=== PATIENT | female | born 1990 | race Caucasian/White ===

== ENCOUNTER 2018-11-13 17:08 | Emergency (ER) | payer OTHER ==
[~2018-11-13] VITALS: Ht 170.2 cm; Wt 79.5 kg
[2018-11-13 19:19] LABS: AMPHET/METH SCREEN,URINE POSITIVE (NEGATIVE); BARBITURATE SCREEN, URINE NEGATIVE (NEGATIVE); BENZODIAZEPINES SCREEN,URINE NEGATIVE (NEGATIVE); CANNABINOID SCREEN,URINE NEGATIVE (NEGATIVE); COCAINE SCREEN,URINE NEGATIVE (NEGATIVE); METHADONE SCREEN, URINE NEGATIVE (NEGATIVE); OPIATE SCREEN,URINE POSITIVE (NEGATIVE); PHENCYCLIDINE SCREEN,URINE NEGATIVE (NEGATIVE)
[2018-11-13 19:31] LABS: APPEARANCE,URINE TURBID (CLEAR); GLUCOSE, URINE (UA) NEGATIVE (NEGATIVE); KETONES,URINE TRACE mg/dL (NEGATIVE); LEUKOCYTE ESTERASE ,URINE MODERATE (NEGATIVE); NITRATE,URINE NEGATIVE (NEGATIVE); OCCULT BLOOD,URINE SMALL (NEGATIVE); PH,URINE 5.5 (5.0-8.0); PROTEIN,URINE POS 1+ (NEGATIVE)
[2018-11-13 19:36] LABS: BILIRUBIN,URINE PRELIM. POSITIVE (NEGATIVE)
[2018-11-13 20:36] LABS: BACTERIA,URINE Many /HPF (None Seen); CALCIUM OXALATE CRYSTALS,UR Few /LPF (None Seen); SQUAMOUS EPITHELIAL CELL,UR Many /LPF (None Seen)
[2018-11-13 20:37] LABS: WBC,URINE 51-100 /HPF (0-5)
[2018-11-13 20:38] LABS: AMORPHOUS SEDIMENT,UR Few /LPF (None Seen)
[2018-11-13] MEDS ORDERED: DOXYCYCLINE HYCLATE 100 MG CAPSULE PO ONE (21:15)
[2018-11-14] MEDS ORDERED: 0.9% SODIUM CHLORIDE 10 ML SYRINGE IVP PRN (00:15)
[2018-11-14] MEDS ORDERED: ACETAMINOPHEN 325 MG TABLET PO PRN (00:15)
[2018-11-14] MEDS ORDERED: ONDANSETRON HCL 4 MG/2 ML VIAL IVP PRN (00:15)
[2018-11-14 00:25] VITALS: BP 118/84
== END 2018-11-14 00:34 | disposition home or self-care (01) ==
LOC: EMS 17:10
DX: R45.851 Suicidal ideations (principal); F17.210 Nicotine dependence, cigarettes, uncomplicated; F11.90 Opioid use, unspecified, uncomplicated
CPT/HCPCS: 87086

== ENCOUNTER 2019-03-31 11:23 | Inpatient (IN) | payer MEDICAID ==
[2019-03-31 11:24] VITALS: BP 124/90
[2019-03-31] MEDS ORDERED: ZOLPIDEM TARTRATE 10 MG TABLET PO PRN (11:45)
[2019-03-31] MEDS ORDERED: LORazepam 2 MG TABLET PO PRN (11:45)
[2019-03-31] MEDS ORDERED: HALOPERIDOL 5 MG TABLET PO PRN (11:45)
[2019-03-31 12:25] VITALS: BP 123/98
[2019-03-31] MEDS: ChlordiazePOXIDE HCL 25 MG CAPSULE PO PRN ×3 (13:06→20:18)
[2019-03-31] MEDS ORDERED: CloNIDine HCL 0.1 MG TABLET PO PRN (13:45)
[2019-03-31] MEDS ORDERED: MAGNESIUM HYDROXIDE SUSPENSION 30 ML UDCUP PO PRN (13:45)
[2019-03-31] MEDS ORDERED: ALBUTEROL SULFATE HFA 90 MCG/PUFF 8 GM INHALER IH PRN (13:45)
[2019-03-31] MEDS ORDERED: MAG HYDROX/AL HYDROX/SIMETH ES 30 ML SUSPENSION UDCUP PO PRN (13:45)
[2019-03-31] MEDS ORDERED: ONDANSETRON HCL 4 MG TABLET PO PRN (13:45)
[2019-03-31] MEDS ORDERED: BACITRACIN 28.4 GM OINTMENT TP PRN (13:45)
[2019-03-31] MEDS ORDERED: PETROLATUM,WHITE 28 GM JELLY TP PRN (13:45)
[2019-03-31] MEDS ORDERED: BENZOCAINE/MENTHOL LOZENGE MM PRN (13:45)
[2019-03-31] MEDS ORDERED: LOPERAMIDE HCL 2 MG CAPSULE PO PRN (13:45)
[2019-03-31] MEDS ORDERED: ACETAMINOPHEN 325 MG TABLET PO PRN (13:45)
[2019-03-31 14:26] VITALS: BP 121/72
[2019-03-31 15:26] VITALS: BP 101/60
[2019-03-31 19:26] VITALS: BP 118/70
[2019-03-31] MEDS: QUEtiapine FUMARATE 100 MG TABLET PO SCH (20:18)
[2019-03-31 23:25] VITALS: BP 115/70
[2019-04-01] VITALS (10 sets, daily range): BP systolic 110–124; BP diastolic 64–88
[2019-04-01] MEDS: ChlordiazePOXIDE HCL 25 MG CAPSULE PO PRN (03:52)
[2019-04-01] MEDS: IBUPROFEN 600 MG TABLET PO PRN ×2 (03:52→12:07)
[2019-04-01] MEDS ORDERED: ChlordiazePOXIDE HCL 25 MG CAPSULE PO PRN (07:00)
[2019-04-01] MEDS: QUEtiapine FUMARATE 100 MG TABLET PO SCH ×2 (08:17→21:05)
[2019-04-01] MEDS: ChlordiazePOXIDE HCL 25 MG CAPSULE PO SCH ×4 (08:17→21:05)
[2019-04-01] MEDS: NICOTINE 21 MG/24 HOUR PATCH TD SCH (08:18)
[2019-04-02 02:38] VITALS: BP 120/82
[2019-04-02 03:38] VITALS: BP 122/72
[2019-04-02 08:19] VITALS: BP 123/80
[2019-04-02] MEDS: NICOTINE 21 MG/24 HOUR PATCH TD SCH (08:41)
[2019-04-02] MEDS: ChlordiazePOXIDE HCL 25 MG CAPSULE PO SCH (08:41)
[2019-04-02] MEDS: QUEtiapine FUMARATE 100 MG TABLET PO SCH (08:41)
[2019-04-02] MEDS ORDERED: LIB10 PO (11:10)
[2019-04-02] MEDS ORDERED: LIB25 PO (11:10)
[2019-04-02] MEDS ORDERED: QUET100T PO (11:10)
[2019-04-03] MEDS ORDERED: ChlordiazePOXIDE HCL 10 MG CAPSULE PO PRN (07:00)
[2019-04-03] MEDS ORDERED: ChlordiazePOXIDE HCL 10 MG CAPSULE PO SCH (09:00)
[2019-04-04] MEDS ORDERED: ChlordiazePOXIDE HCL 10 MG CAPSULE PO PRN (07:00)
== END 2019-04-02 12:25 | disposition home or self-care (01) | DRG 750 ==
LOC: B2S 12:00
PROVIDERS: ADMIT Psychiatry & Neurology Child & Adolescent Psychiatry; ATTEND Psychiatry & Neurology Child & Adolescent Psychiatry
DX: F20.0 Paranoid schizophrenia (principal); R45.851 Suicidal ideations; Z59.0 Homelessness; F17.200 Nicotine dependence, unspecified, uncomplicated; Z91.5 Personal history of self-harm; F41.9 Anxiety disorder, unspecified; F19.10 Other psychoactive substance abuse, uncomplicated; F32.9 Major depressive disorder, single episode, unspecified; G47.00 Insomnia, unspecified

== ENCOUNTER 2021-04-07 03:58 | Inpatient (IN) | payer MEDICAID, OTHER ==
[~2021-04-07] VITALS: Ht 170.2 cm; Wt 61.9 kg
[2021-04-07] VITALS (7 sets, daily range): BP systolic 102–127; BP diastolic 61–82
[~2021-04-07 03:58] MED LIST: QUET100T PO
[2021-04-07 04:42] LABS: BASOPHILS % (AUTO) 0.6 % (0.0-2.0); EOSINOPHILS % (AUTO) 1.2 % (1.0-6.0); HEMATOCRIT 38.3 % (36-46); HEMOGLOBIN 13.1 g/dL (12.0-16.0); LYMPHOCYTES # (AUTO) 1.5 K/uL (1.0-4.8); LYMPHOCYTES % (AUTO) 26.3 % (22.0-44.0); MEAN CORPUSCULAR HEMOGLOBIN 29.1 pg (26.0-34.0); MEAN CORPUSCULAR HGB CONC 34.1 G/dL (31.0-37.0); MEAN CORPUSCULAR VOLUME 85 fL (80-100); MONOCYTES # (AUTO) 0.3 K/uL (0.1-1.0); MONOCYTES % (AUTO) 4.6 % (2.0-9.0); NEUTROPHILS # (AUTO) 3.9 K/uL (1.8-7.7); NEUTROPHILS % (AUTO) 67.3 % (40.0-70.0); PLATELET COUNT (AUTO) 265 K/uL (150-450); RED BLOOD CELL COUNT(AUTO) 4.49 MIL/uL (4.00-5.20); RED CELL DISTRIBUTION WIDTH 13.8 % (11.5-14.5)
[2021-04-07 04:46] LABS: COVID AG,FIA SOURCE NASOPHARYNGEAL
[2021-04-07] MEDS ORDERED: HALOPERIDOL 5 MG TABLET PO PRN (05:00)
[2021-04-07 05:04] LABS: ANION GAP 8 mmol/L (8-16); CALCIUM, TOTAL 9.1 mg/dL (8.8-10.5); CARBON DIOXIDE 27 mmol/L (22-29); CHLORIDE 106 mmol/L (98-107); CREATININE 0.71 mg/dL (0.60-1.30); GLOMERULAR FILTR. RATE CALC > 60 mL/min (>60); GLUCOSE,RANDOM 103 mg/dL (70-110); POTASSIUM 4.1 mmol/L (3.5-5.1); SODIUM SERUM 141 mmol/L (136-145); UREA NITROGEN, BLOOD 12 mg/dL (7-18)
[2021-04-07 05:18] LABS: ALANINE AMINOTRANSFERASE 26 U/L (12-78); ALBUMIN 3.7 g/dL (3.4-5.0); ALKALINE PHOSPHATASE 92 U/L (46-116); ASPARTATE AMINOTRANSFERASE 20 U/L (15-37); BILIRUBIN,TOTAL 0.3 mg/dL (0.1-1.0); HCG,QUANTITATIVE 1 mIU/mL (0-6); TOTAL PROTEIN, SERUM 7.8 g/dL (6.4-8.2)
[2021-04-07 05:21] LABS: ACETAMINOPHEN < 2 mcg/mL (10-30)
[2021-04-07 05:28] LABS: SALICYLATE 2.2 mg/dL (2.8-20.0)
[2021-04-07] MEDS ORDERED: ONDANSETRON HCL 4 MG TABLET PO PRN (06:45)
[2021-04-07] MEDS ORDERED: CloNIDine HCL 0.1 MG TABLET PO PRN ×2 (06:45→10:30)
[2021-04-07] MEDS ORDERED: MAGNESIUM HYDROXIDE SUSPENSION 30 ML UDCUP PO PRN (06:45)
[2021-04-07] MEDS ORDERED: MAG HYDROX/AL HYDROX/SIMETH ES 30 ML SUSPENSION UDCUP PO PRN ×2 (06:45→10:30)
[2021-04-07] MEDS ORDERED: ALBUTEROL SULFATE HFA 90 MCG/PUFF 8 GM INHALER IH PRN (06:45)
[2021-04-07] MEDS ORDERED: DOCUSATE SODIUM 100 MG CAPSULE PO PRN (06:45)
[2021-04-07] MEDS ORDERED: PETROLATUM,WHITE 28 GM JELLY TP PRN (06:45)
[2021-04-07] MEDS ORDERED: IBUPROFEN 400 MG TABLET PO PRN (06:45)
[2021-04-07] MEDS ORDERED: ACETAMINOPHEN 325 MG TABLET PO PRN (06:45)
[2021-04-07] MEDS ORDERED: GuaiFENesin/D-METHORPHAN [SUGAR-FREE] 200-20MG/10 ML SYRUP UDCUP PO PRN (06:45)
[2021-04-07] MEDS ORDERED: LOPERAMIDE HCL 2 MG CAPSULE PO PRN (06:45)
[2021-04-07] MEDS ORDERED: HydrOXYzine PAMOATE 50 MG CAPSULE PO PRN (10:30)
[2021-04-07] MEDS ORDERED: IBUPROFEN 600 MG TABLET PO PRN (10:30)
[2021-04-07] MEDS ORDERED: INFLUENZA VIRUS VACCINE QVS 2021-22 (6MO+)/PF 60 MCG/0.5 ML SYRINGE IM. ONE (11:30)
[2021-04-07] MEDS: QUEtiapine FUMARATE 100 MG TABLET PO SCH ×2 (12:41→20:37)
[2021-04-07] MEDS: CloNIDine HCL 0.1 MG TABLET PO SCH ×3 (14:48→21:17)
[2021-04-08 05:47] VITALS: BP 105/90
[2021-04-08] MEDS: CloNIDine HCL 0.1 MG TABLET PO SCH ×4 (06:24→21:22)
[2021-04-08] MEDS: QUEtiapine FUMARATE 100 MG TABLET PO SCH ×2 (08:40→20:18)
[2021-04-08 10:30] VITALS: BP 117/68
[2021-04-08 21:22] VITALS: BP 147/81
[2021-04-09 00:30] VITALS: BP 134/75
[2021-04-09] MEDS: CloNIDine HCL 0.1 MG TABLET PO SCH ×4 (06:55→21:24)
[2021-04-09] MEDS ORDERED: DiphenhydrAMINE HCL 50 MG/ML VIAL ONE (08:19)
[2021-04-09 08:20] VITALS: BP 159/98
[2021-04-09] MEDS ORDERED: DiphenhydrAMINE HCL 50 MG/ML VIAL IM ONE (08:30)
[2021-04-09] MEDS: QUEtiapine FUMARATE 100 MG TABLET PO SCH ×2 (09:00→20:54)
[2021-04-09 10:30] VITALS: BP 116/70
[2021-04-09 16:07] VITALS: BP 104/63
[2021-04-09 21:24] VITALS: BP 126/93
[2021-04-10] MEDS: CloNIDine HCL 0.1 MG TABLET PO SCH ×4 (06:12→22:19)
[2021-04-10 08:10] VITALS: BP 120/70
[2021-04-10] MEDS: QUEtiapine FUMARATE 100 MG TABLET PO SCH (08:57)
[2021-04-10] MEDS: OLANZapine 5 MG TABLET PO SCH ×2 (09:30→20:46)
[2021-04-10 10:30] VITALS: BP 111/73
[2021-04-10] MEDS: LORazepam 2 MG TABLET PO PRN (16:21)
[2021-04-10 17:38] VITALS: BP 108/68
[2021-04-11 01:25] VITALS: BP 112/69
[2021-04-11] MEDS: CloNIDine HCL 0.1 MG TABLET PO SCH ×4 (06:19→21:36)
[2021-04-11] MEDS: LORazepam 2 MG TABLET PO PRN (07:41)
[2021-04-11] MEDS: OLANZapine 5 MG TABLET PO SCH ×2 (07:44→20:59)
[2021-04-11] MEDS: NICOTINE 14 MG/24 HOUR PATCH TD PRN ×2 (07:48→07:49)
[2021-04-11 08:00] VITALS: BP 126/77
[2021-04-11 13:03] VITALS: BP 100/68
[2021-04-11 16:19] VITALS: BP 99/61
[2021-04-11 16:43] VITALS: BP 104/73
[2021-04-11] MEDS: ZOLPIDEM TARTRATE 10 MG TABLET PO PRN (20:58)
[2021-04-11 21:35] VITALS: BP 113/69
[2021-04-12 04:13] VITALS: BP 118/71
[2021-04-12] MEDS: CloNIDine HCL 0.1 MG TABLET PO SCH ×4 (06:00→21:32)
[2021-04-12 06:28] VITALS: BP 119/82
[2021-04-12] MEDS: LORazepam 2 MG TABLET PO PRN (06:33)
[2021-04-12 08:22] VITALS: BP 119/61
[2021-04-12] MEDS: NICOTINE 14 MG/24 HOUR PATCH TD PRN (08:34)
[2021-04-12] MEDS: OLANZapine 5 MG TABLET PO SCH ×2 (08:34→21:00)
[2021-04-12 14:41] LABS: GLUCOMETER DEV NAME(LOC) POC.BV
[2021-04-12 16:25] VITALS: BP 113/76
[2021-04-12 17:45] LABS: AMPHET/METH SCREEN,URINE NEGATIVE (NEGATIVE); BARBITURATE SCREEN, URINE NEGATIVE (NEGATIVE); BENZODIAZEPINES SCREEN,URINE NEGATIVE (NEGATIVE); CANNABINOID SCREEN,URINE NEGATIVE (NEGATIVE); COCAINE SCREEN,URINE NEGATIVE (NEGATIVE); METHADONE SCREEN, URINE NEGATIVE (NEGATIVE); OPIATE SCREEN,URINE NEGATIVE (NEGATIVE)
[2021-04-12 17:49] LABS: PHENCYCLIDINE SCREEN,URINE NEGATIVE (NEGATIVE)
[2021-04-12] MEDS: ZOLPIDEM TARTRATE 10 MG TABLET PO PRN (23:58)
[2021-04-13] VITALS: BP 111/66
[2021-04-13] MEDS: CloNIDine HCL 0.1 MG TABLET PO SCH ×4 (06:48→21:46)
[2021-04-13] MEDS: OLANZapine 5 MG TABLET PO SCH ×2 (08:39→21:46)
[2021-04-13 08:53] VITALS: BP 114/67
[2021-04-13 12:15] VITALS: BP 104/72
[2021-04-13] MEDS: LORazepam 2 MG TABLET PO PRN (15:53)
[2021-04-13 16:39] VITALS: BP 110/65
[2021-04-13 21:45] VITALS: BP 100/74
[2021-04-13] MEDS: MUPIROCIN CALCIUM 2% 22 GM OINTMENT NASAL SCH (21:46)
[2021-04-14 01:07] VITALS: BP 113/68
[2021-04-14] MEDS: LORazepam 2 MG TABLET PO PRN (06:40)
[2021-04-14] MEDS: CloNIDine HCL 0.1 MG TABLET PO SCH ×2 (06:44→12:00)
[2021-04-14 08:22] VITALS: BP 96/57
[2021-04-14] MEDS: OLANZapine 5 MG TABLET PO SCH (09:11)
[2021-04-14] MEDS: MUPIROCIN CALCIUM 2% 22 GM OINTMENT NASAL SCH (10:34)
[2021-04-14 16:31] VITALS: BP 116/76
== END 2021-04-14 21:10 | disposition home or self-care (01) | DRG 750 ==
LOC: EMS 03:59 → B2S 05:00
PROVIDERS: ADMIT Psychiatry & Neurology Child & Adolescent Psychiatry; ATTEND Psychiatry & Neurology Child & Adolescent Psychiatry
DX: F25.1 Schizoaffective disorder, depressive type (principal); G12.21 Amyotrophic lateral sclerosis; R45.851 Suicidal ideations; Z91.19 Patient's noncompliance with other medical treatment and regimen; F32.9 Major depressive disorder, single episode, unspecified; Z20.822 Contact with and (suspected) exposure to COVID-19; K59.00 Constipation, unspecified; F41.9 Anxiety disorder, unspecified; F17.210 Nicotine dependence, cigarettes, uncomplicated; K30 Functional dyspepsia; R21 Rash and other nonspecific skin eruption; F11.10 Opioid abuse, uncomplicated; Z71.51 Drug abuse counseling and surveillance of drug abuser; Z28.21 Immunization not carried out because of patient refusal
CPT/HCPCS: 80053; 80307; 84702; 85025; 87081; 99285; G0480; G0481; J1200

== ENCOUNTER 2021-04-16 12:17 | Inpatient (IN) | payer MEDICAID, OTHER ==
[~2021-04-16] VITALS: Ht 170.2 cm; Wt 55.9 kg
[2021-04-16] MEDS ORDERED: LORazepam 2 MG/ML VIAL ONE (13:13)
[2021-04-16] MEDS ORDERED: DiphenhydrAMINE HCL 50 MG/ML VIAL ONE (13:14)
[2021-04-16] MEDS ORDERED: HALOPERIDOL LACTATE 5 MG/ML VIAL ONE (13:14)
[2021-04-16] MEDS ORDERED: LORazepam 2 MG/ML VIAL IM ONE (13:15)
[2021-04-16] MEDS ORDERED: OLANZapine 5 MG TABLET PO ONE (13:15)
[2021-04-16] MEDS ORDERED: QUEtiapine FUMARATE 100 MG TABLET PO ONE (13:15)
[2021-04-16] MEDS ORDERED: HALOPERIDOL LACTATE 5 MG/ML VIAL IM ONE (13:15)
[2021-04-16] MEDS ORDERED: LORazepam 2 MG TABLET PO ONE (13:15)
[2021-04-16] MEDS ORDERED: DiphenhydrAMINE HCL 50 MG/ML VIAL IM ONE (13:15)
[2021-04-16] MEDS ORDERED: ZOLPIDEM TARTRATE 10 MG TABLET PO PRN (13:30)
[2021-04-16 15:12] LABS: COVID AG,FIA SOURCE NASOPHARYNGEAL
[2021-04-16 15:32] LABS: AMPHET/METH SCREEN,URINE POSITIVE (NEGATIVE); BARBITURATE SCREEN, URINE NEGATIVE (NEGATIVE); BENZODIAZEPINES SCREEN,URINE NEGATIVE (NEGATIVE); CANNABINOID SCREEN,URINE NEGATIVE (NEGATIVE); COCAINE SCREEN,URINE NEGATIVE (NEGATIVE); METHADONE SCREEN, URINE NEGATIVE (NEGATIVE); OPIATE SCREEN,URINE POSITIVE (NEGATIVE)
[2021-04-16 15:37] LABS: APPEARANCE,URINE SL CLOUDY (CLEAR); BILIRUBIN,URINE NEGATIVE (NEGATIVE); GLUCOSE, URINE (UA) NEGATIVE (NEGATIVE); KETONES,URINE NEGATIVE (NEGATIVE); LEUKOCYTE ESTERASE ,URINE NEGATIVE (NEGATIVE); NITRATE,URINE NEGATIVE (NEGATIVE); OCCULT BLOOD,URINE NEGATIVE (NEGATIVE); PH,URINE 5.5 (5.0-8.0); PROTEIN,URINE POS 1+ (NEGATIVE); UROBILINOGEN,URINE 0.2 mg/dL (<=1.0)
[2021-04-16 15:39] LABS: PHENCYCLIDINE SCREEN,URINE NEGATIVE (NEGATIVE)
[2021-04-16 15:42] LABS: BASOPHILS % (AUTO) 0.5 % (0.0-2.0); EOSINOPHILS % (AUTO) 2.3 % (1.0-6.0); HEMATOCRIT 42.5 % (36-46); HEMOGLOBIN 14.2 g/dL (12.0-16.0); LYMPHOCYTES # (AUTO) 1.6 K/uL (1.0-4.8); LYMPHOCYTES % (AUTO) 27.9 % (22.0-44.0); MEAN CORPUSCULAR HEMOGLOBIN 29.1 pg (26.0-34.0); MEAN CORPUSCULAR HGB CONC 33.5 G/dL (31.0-37.0); MEAN CORPUSCULAR VOLUME 87 fL (80-100); MONOCYTES # (AUTO) 0.3 K/uL (0.1-1.0); MONOCYTES % (AUTO) 5.3 % (2.0-9.0); NEUTROPHILS # (AUTO) 3.6 K/uL (1.8-7.7); PLATELET COUNT (AUTO) 240 K/uL (150-450); RED BLOOD CELL COUNT(AUTO) 4.89 MIL/uL (4.00-5.20)
[2021-04-16 15:43] LABS: ANION GAP 12 mmol/L (8-16); CALCIUM, TOTAL 9.6 mg/dL (8.8-10.5); CARBON DIOXIDE 25 mmol/L (22-29); CHLORIDE 102 mmol/L (98-107); CREATININE 0.73 mg/dL (0.60-1.30); GLOMERULAR FILTR. RATE CALC > 60 mL/min (>60); GLUCOSE,RANDOM 106 mg/dL (70-110); POTASSIUM 4.1 mmol/L (3.5-5.1); SODIUM SERUM 139 mmol/L (136-145); UREA NITROGEN, BLOOD 17 mg/dL (7-18)
[2021-04-16 15:49] LABS: ALANINE AMINOTRANSFERASE 33 U/L (12-78); ALKALINE PHOSPHATASE 72 U/L (46-116); ASPARTATE AMINOTRANSFERASE 24 U/L (15-37); BILIRUBIN,TOTAL 0.7 mg/dL (0.1-1.0); TOTAL PROTEIN, SERUM 8.1 g/dL (6.4-8.2)
[2021-04-16 17:29] VITALS: BP 135/74
[2021-04-16] MEDS ORDERED: NICOTINE 14 MG/24 HOUR PATCH TD PRN (21:00)
[2021-04-17] MEDS: LORazepam 2 MG TABLET PO PRN ×2 (06:31→12:24)
[2021-04-17 08:56] VITALS: BP 156/90
[2021-04-17] MEDS ORDERED: QUEtiapine FUMARATE 200 MG TABLET ONE (10:55)
[2021-04-17] MEDS: QUEtiapine FUMARATE 200 MG TABLET PO SCH ×2 (10:56→16:06)
[2021-04-17] MEDS: BENZTROPINE MESYLATE 1 MG TABLET PO SCH ×2 (12:24→16:06)
[2021-04-17 16:00] VITALS: BP 109/70
[2021-04-18 08:00] VITALS: BP 117/69
[2021-04-18] MEDS: OLANZapine 5 MG RAPDIS TABLET PO PRN ×2 (08:09→19:39)
[2021-04-18] MEDS: BENZTROPINE MESYLATE 1 MG TABLET PO SCH ×2 (08:09→16:05)
[2021-04-18] MEDS: LORazepam 2 MG TABLET PO PRN ×2 (08:09→16:06)
[2021-04-18] MEDS: QUEtiapine FUMARATE 200 MG TABLET PO SCH ×2 (08:09→16:06)
[2021-04-18 16:01] VITALS: BP 114/72
[2021-04-19] MEDS: QUEtiapine FUMARATE 200 MG TABLET PO SCH (08:11)
[2021-04-19] MEDS: BENZTROPINE MESYLATE 1 MG TABLET PO SCH (08:11)
[2021-04-19] MEDS: LORazepam 2 MG TABLET PO PRN (08:11)
[2021-04-19 09:01] VITALS: BP 114/81
[2021-04-19] MEDS ORDERED: BENZ1TAB10 PO (10:21)
== END 2021-04-19 15:05 | disposition home or self-care (01) | DRG 750 ==
LOC: EMS 12:17 → 3EC 16:21
PROVIDERS: ADMIT Psychiatry & Neurology Child & Adolescent Psychiatry; ATTEND Psychiatry & Neurology Child & Adolescent Psychiatry
DX: F25.1 Schizoaffective disorder, depressive type (principal); R45.851 Suicidal ideations; Z91.19 Patient's noncompliance with other medical treatment and regimen; F10.10 Alcohol abuse, uncomplicated; K59.00 Constipation, unspecified; Y90.0 Blood alcohol level of less than 20 mg/100 ml; F15.10 Other stimulant abuse, uncomplicated; Z20.822 Contact with and (suspected) exposure to COVID-19; F11.10 Opioid abuse, uncomplicated; R00.0 Tachycardia, unspecified; R03.0 Elevated blood-pressure reading, without diagnosis of hypertension; F17.210 Nicotine dependence, cigarettes, uncomplicated; Z79.899 Other long term (current) drug therapy; Z86.14 Personal history of Methicillin resistant Staphylococcus aureus infection; Z87.01 Personal history of pneumonia (recurrent); Z71.41 Alcohol abuse counseling and surveillance of alcoholic; Z71.51 Drug abuse counseling and surveillance of drug abuser
CPT/HCPCS: 80053; 81003; 84703; 85025; 87081; 99291; G0480; J1200; J1630; J2060